=== PATIENT | female | born 1965 | race Caucasian/White ===

== ENCOUNTER 2016-03-16 09:15 | Observation (INO) | payer BC ==
[2016-03-21] MEDS ORDERED: ceFAZolin 2 GM/DEXTROSE 100 ML IV ONE (12:00)
[2016-03-21] MEDS ORDERED: LR 1,000 ML IV SCH (12:00)
[2016-04-20] MEDS ORDERED: LIDOCAINE 1% 30 ML SDV ONE (08:45)
[2016-04-20] MEDS ORDERED: BUPIVACAINE 0.25% 30 ML SDV ONE (08:45)
[2016-04-20] MEDS ORDERED: METHYLENE BLUE 1% 10 MG/ML VIAL ONE (08:46)
[2016-04-20] MEDS ORDERED: VASOPRESSIN 20 UNIT/ML VIAL ONE (08:46)
[2016-04-20] MEDS ORDERED: LR 1,000 ML IV SCH (11:00)
[2016-04-20] MEDS ORDERED: ONDANSETRON 4 MG/2 ML VIAL IVP PRN (11:00)
[2016-04-20] MEDS ORDERED: MIDAZOLAM 2 MG/2 ML VIAL ONE (11:42)
[2016-04-20] MEDS ORDERED: SCOPOLAMINE HYDROBROMIDE 1.5 MG PATCH TD ONE (11:42)
[2016-04-20] MEDS ORDERED: fentaNYL 250 MCG/5 ML INJ ONE (11:52)
[2016-04-20] MEDS ORDERED: ROCURONIUM 50 MG/5 ML VIAL ONE ×3 (11:52→15:08)
[2016-04-20] MEDS ORDERED: fentaNYL 100 MCG/2 ML INJ ONE ×2 (11:52→14:57)
[2016-04-20] MEDS ORDERED: PROPOFOL/EMULSION 500 MG/50 ML BOTTLE IV ONE ×3 (11:52→14:58)
[2016-04-20] MEDS ORDERED: PROPOFOL 200 MG/20 ML VIAL ONE (11:52)
[2016-04-20] MEDS ORDERED: ONDANSETRON 4 MG/2 ML VIAL ONE (11:53)
[2016-04-20] MEDS ORDERED: DEXAMETHASONE 4 MG/ML VIAL ONE ×2 (11:53→15:08)
[2016-04-20] MEDS ORDERED: LIDOCAINE 2% 5 ML SDV ONE (11:53)
[2016-04-20] MEDS ORDERED: KETOROLAC 30 MG/1 ML SDV ONE (11:53)
[2016-04-20] MEDS ORDERED: ceFAZolin 1 GM VIAL ONE ×2 (12:06)
[2016-04-20] MEDS ORDERED: HYDROmorphONE/DILAUDID 2 MG/ML SYR ONE (13:26)
[2016-04-20] MEDS ORDERED: SURGIFLO MATRIX KIT WITH THROMBIN TP ONE (15:09)
[2016-04-20] MEDS ORDERED: ROCURONIUM 100 MG/10 ML VIAL ONE (15:09)
[2016-04-20] MEDS ORDERED: SUGAMMADEX SODIUM 200 MG/2 ML VIAL IVP ONE (15:25)
[2016-04-20] MEDS ORDERED: HYDROmorphONE/DILAUDID 2 MG TAB PO PRN (17:04)
--- NOTE | 2016-04-20 17:07 | POSTOPPROG ---
Post Op Note Date of Operation: 04/20/16 Surgeon: Suki Bates [employer] Worker: Charlotte Anesthesia: GET(General Endotracheal) Pre-op Diagnosis: menorrhagia, fibroid uterus, endometriosis Post-op Diagnosis: same Indication: menorrhagia, fibroid uterus, endometriosis Procedure: LAVH/BSO Findings: 13 week uterus, right 4 cm endometrioma cyst Inf/Abcess present in the surg proc area at time of surgery?: No Depth: Organ Space EBL: 100-500 Complications: none Specimen(s): ovaries, fallopian tubes, uterus, cervix
[2016-04-20] MEDS: KETOROLAC 30 MG/1 ML SDV IVP SCH ×2 (17:38→23:32)
[2016-04-20 18:02] VITALS: RESP 16
--- NOTE | 2016-04-20 18:04 | GOP ---
[f rep st] OPERATIVE REPORT DATE OF OPERATION: 04/20/2016 SURGEON: Suki Moss MD ELECT[employer] MACHINE OPERATOR: Micaela Porter MD. ANESTHESIA: General. PREOPERATIVE DIAGNOSIS: Menorrhagia, fibroid uterus, and endometriosis. POSTOPERATIVE DIAGNOSIS: Menorrhagia, fibroid uterus, and endometriosis. PROCEDURE PERFORMED: Laparoscopic-assisted vaginal hysterectomy and bilateral salpingoophorectomy. FINDINGS: A 13-week size fibroid uterus, a right endometrioma cyst, about 4 cm in size, a 1 cm left endometrioma cyst. Normal bladder, bilateral ureteral jets seen on cystoscopy. SPECIMENS: Ovaries, fallopian tubes, uterus, and cervix. ESTIMATED BLOOD LOSS: 400 mL. INDICATIONS: The patient is a 50-year-old female who had long-standing history of menorrhagia and endometriosis and fibroid uterus who had previously undergone a myomectomy and ovarian cystectomy and had a pelvic ultrasound, which revealed fibroid uterus and a right endometrioma, and desires surgical management. She had a normal endometrial biopsy prior to the procedure and a normal Pap smear prior to the procedure. DESCRIPTION OF PROCEDURE: The patient was taken to the operating room, where she was prepped and draped in a normal sterile fashion in the low dorsal lithotomy position. The patient had a Duff catheter placed in her bladder. The patient received 2 g of Ancef preoperatively. A surgical time-out was performed, verifying the patient's name, date of , planned procedure, and site. A bivalved speculum was placed in the patient's vagina. The anterior aspect of the cervix was grasped with a single-tooth tenaculum. The uterine manipulator was placed into the cervical canal and the bivalved speculum was removed, The gloves were changed. The umbilical skin was injected with 0.25% Marcaine. A 10 mm incision was made with an 11 blade scalpel. Subcutaneous tissue was dissected down to the fascia. The fascia was tented up and incised with a 15 blade scalpel. The fascia was tagged with 0 Vicryl. The Julissa port was placed in the patient's abdominal cavity. The patient was placed in Trendelenburg. The abdomen was insufflated. Approximately 5 cm to the patient' s right of her umbilicus and 2 cm caudad, the skin was transilluminated, injected with 0.25% Marcaine, and a 5 mm incision was made. Trocar was placed into the patient's abdominal cavity. The same procedure was performed on the left of the umbilicus. Visualization of the pelvic cavity revealed a large fibroid uterus that filled in the entire lower pelvis. She also had a 4 cm right endometrioma cyst. Her left ovary had approximately two 1 cm small endometriomas. The left round ligament was grasped, cauterized, and cut. The anterior leaf of the broad ligament was grasped, cauterized, and cut on the left side. Then, the left ovary was able to be elevated. The left IP was doubly cauterized, clamped, and cut, and the posterior leaf of the broad ligament was cauterized and cut. The bladder flap was created anteriorly. The uterine arteries were cauterized and cut. On the patient's right side, her right round ligament was grasped, cauterized, and cut. The anterior leaf of the broad ligament was grasped, cauterized, and cut, and the bladder flap was created anteriorly. The right utero-ovarian ligament was then cauterized and cut. The right ovary was then able to be elevated, and the right IP ligament was cauterized and cut. The posterior leaf of the broad ligament was then cauterized and cut down to the uterine arteries. The uterine arteries were cauterized and cut. A bladder flap was then created anteriorly. The vaginal portion of the procedure then took place. The patient was placed in high lithotomy position. A short weighted speculum was placed in the patient's vagina. A [place] was placed in the anterior aspect of the vagina. The cervix was grasped with Childers tenaculum x2, and the cervicovaginal junction was injected with dilute vasopressin circumferentially. The vaginal epithelium was incised with the 10 blade scalpel. The vaginal epithelium was dissected off the cervix bluntly. The posterior peritoneum was identified and entered in sharply. The long weighted speculum was then placed in the patient's posterior cul-de-sac. The bladder was then further dissected off the cervix. The uterosacral ligaments were bilaterally clamped, cut, and suture ligated, and the remaining portion of the cardinal ligaments were bilaterally clamped, cut, and suture ligated. Then, the anterior peritoneum was identified and entered in. The josee retractor was placed into the anterior cul-de-sac to deflect the bladder well away from the uterus. Then, uterine morcellation took place to deliver the uterus. This procedure took approximately an hour or so, extending the case by about an hour and a half longer than expected. The uterus was removed in pieces via morcellation with a 10 blade scalpel. Once the uterus, cervix, bilateral ovaries, and fallopian tubes were removed, the pelvis was irrigated. The posterior cuff was reapproximated with 0 Vicryl. The vaginal cuff was reapproximated with 0 Vicryl. The laparoscopic portion was then performed. The patient's abdomen was irrigated, and there was hemostasis at the pedicles and the vaginal cuff. Surgiflo was placed over the vaginal cuff. The fascia was reapproximated with O Vicryl and the skin was reapproximated with 4.0 monocryl. Cystoscopy was then performed. After the patient received methylene blue, bilateral ureteral jets were seen. The patient tolerated the procedure very well, and was stable to recovery room. All counts were correct x2. COMPLICATIONS: None. OUTCOME: Stable to the recovery room. /[id number]/MODL MTDD
[2016-04-20] MEDS ORDERED: DOCUSATE SODIUM 100 MG CAP PO PRN (18:19)
[2016-04-20] MEDS ORDERED: ACETAMINOPHEN 500 MG TAB PO PRN (18:19)
[2016-04-20] MEDS ORDERED: ZOLPIDEM TARTRATE 5 MG TAB PO PRN (18:19)
[2016-04-20] MEDS ORDERED: CALCIUM CARBONATE 500 MG CHEWABLE TAB PO PRN (18:20)
[2016-04-20] MEDS ORDERED: BETAMETHASONE IM SYRINGE IM SCH (18:30)
[2016-04-20 22:16] VITALS: O2SAT 100
[2016-04-20] MEDS ORDERED: FLU VACC QS 2016-17(3-64YR)/PF 0.5 ML SYR (FLUARIX QUAD) IM ONE (23:48)
[2016-04-21] MEDS ORDERED: FLU VACC QS 2016-17(3-64YR)/PF 0.5 ML SYR (FLUARIX QUAD) IM ONE (00:10)
[2016-04-21] MEDS: KETOROLAC 30 MG/1 ML SDV IVP SCH ×2 (05:38→07:27)
[2016-04-21 06:22] VITALS: BP 115/58; PULSE 57; TEMP 97.7
[2016-04-21 06:22] LABS: % IMMATURE GRANULYOCYTES 0.4 % (0.0-1.1); ABSOLUTE IMMATURE GRANULOCYTES 0.04 10^3/uL (0.00-0.10); ADD DIFF? NO; ADD MORPH? NO; ADD SCAN? NO; ATYPICAL LYMPHOCYTE FLAG 0 (0-99); FRAGMENT RBC FLAG 0 (0-99); HEMATOCRIT 23.6 % (38.0-47.0); HEMOGLOBIN 7.5 g/dL (12.6-16.3); LEFT SHIFT FLG 0 (0-99); LIPEMIA HEMOLYSIS FLAG 80 (0-99); MEAN CELL HEMOGLOBIN 27.7 pg (27.9-34.1); MEAN CELL HEMOGLOBIN CONCENTR. 31.8 g/dL (32.4-36.7); MEAN CELL VOLUME 87.1 fL (81.5-99.8); MEAN PLATELET VOLUME 9.9 fL (8.7-11.7); PLATELET CLUMPS FLAG 10 (0-99); PLATELET COUNT 245 10^3/uL (150-400); RED BLOOD CELL COUNT 2.71 10^6/uL (4.18-5.33); RED CELL DISTRIBUTION WIDTH 14.6 % (11.5-15.2)
--- NOTE | 2016-04-21 07:51 | SOAPPROG ---
SOAP Progress Note Assessment/Plan: Assessment: 50 yo s/p lavh/bso for fibroid uterus, menorrhagia, and endometriosis, pod 1, doing well. Plan: 04/21/16 07:50 Routine postop care, may discharge home after voiding. HCT dropped appropriately according to blood loss, will start iron at home. Subjective: 50 yo s/p lavh/bso for fibroid uterus, menorrhagia, and endometriosis, pod 1, doing well. Pain well controlled, no nausea, no vomiting, ambulating. Objective: Vital Signs Temp Pulse Resp BP Pulse Ox 36.5 C 57 L 16 115/58 L 100 04/21/16 05:45 04/21/16 05:45 04/21/16 05:45 04/21/16 05:45 04/21/16 05:45 Laboratory Results 04/21/16 05:45 04/20/16 04/21/16 04/22/16 05:59 05:59 05:59 Intake Total 6850 Output Total 2850 Balance 4000 Physical Exam - Physical Exam General Appearance: no apparent distress Respiratory: lungs clear Cardiac/Chest: regular rate, rhythm Abdomen: non-tender Skin: warm/dry Extremities: non-tender Neuro/Psych: oriented x 3 ICD10 Worksheet Patient Problems: Problems Problem Status Diagnosed S/P hysterectomy Acute
[2016-04-21] MEDS ORDERED: PRENATAL VIT 1 EACH TAB PO SCH (08:00)
--- NOTE | 2016-04-21 09:01 | GDS ---
[f rep st] DISCHARGE SUMMARY DISCHARGE DIAGNOSES: Menorrhagia, endometrioma, and fibroid uterus, status post laparoscopic-assisted vaginal hysterectomy and bilateral salpingo- oophorectomy. HISTORY OF PRESENT ILLNESS: Janelle is a 50-year-old female who had longstanding history of menorrhagia and endometriosis, had previous myomectomy and cystectomy, had recurrence of fibroids and menorrhagia and endometrioma and desired surgical management. The patient underwent a laparoscopic-assisted vaginal hysterectomy without complications. She had a large fibroid uterus, 13 week size uterus, and EBL was 400 mL. Postoperatively, she is doing very well. She was ambulating. She was voiding. She was tolerating p.o. intake. Her pain was well controlled. PHYSICAL EXAM: VITAL SIGNS: Her blood pressure is 115/58. Pulse is 57. Respiratory rate is 16. O2 sat is 100% and temperature is 36.5. GENERAL: She is in no apparent distress. ABDOMEN: Soft, nontender. Her incision is clean, dry, and intact. LUNGS: Clear to auscultation. HEART: Regular rate and rhythm. EXTREMITIES: She has no calf tenderness. Her urine output was 2450 mL over 15 hours. Her H and H were 8 and 23. DISCHARGE INSTRUCTIONS: Include nothing in the vagina for 6 weeks. Call for fevers, chills, heavy vaginal bleeding, severe abdominal pain, nausea, or vomiting. No heavy lifting greater than 10 pounds for 6 weeks. DISCHARGE MEDICATIONS: Include ibuprofen 600 mg 1 p.o. q.6 hours p.r.n. pain and Dilaudid 4 mg 1 p.o. q.4 hours p.r.n. pain. She is to follow up in 2 weeks with me for her postop visit. /[id number]/MODL MTDD
[2016-04-21] MEDS ORDERED: IBUPROFEN 600 MG TAB PO SCH (12:00)
== END 2016-04-21 11:14 | disposition home or self-care (01) ==
LOC: F3E 04-20 09:00 → FLD 04-20 17:21
PROVIDERS: ADMIT Obstetrics & Gynecology; ATTEND Obstetrics & Gynecology
PROC: 0UTC7ZZ Resection of Cervix, Via Natural or Artificial Opening (ICD-10-PCS; principal; 2016-04-20 10:30)
PROC: 0UT2FZZ Resection of Bilateral Ovaries, Via Natural or Artificial Opening With Percutaneous Endoscopic Assistance (ICD-10-PCS; principal; 2016-04-20 10:30)
PROC: 0UT7FZZ Resection of Bilateral Fallopian Tubes, Via Natural or Artificial Opening With Percutaneous Endoscopic Assistance (ICD-10-PCS; principal; 2016-04-20 10:30)
PROC: 0UT9FZZ Resection of Uterus, Via Natural or Artificial Opening With Percutaneous Endoscopic Assistance (ICD-10-PCS; principal; 2016-04-20 10:30)
DX: N92.0 Excessive and frequent menstruation with regular cycle (principal); D25.9 Leiomyoma of uterus, unspecified; N80.1 Endometriosis of ovary; Z23 Encounter for immunization
CPT/HCPCS: 58554; 90471; G0378; G0008; J0690; J0702; J1100; J1170; J1885; J2250; J2405; J2704; J3010

== ENCOUNTER → 2016-09-13 | Outpatient (CLI) | payer BC | LOC: BMCIMAGING 09:24 | DX: R07.1 Chest pain on breathing (principal); J45.909 Unspecified asthma, uncomplicated ==

== ENCOUNTER → 2016-12-21 | Outpatient (CLI) | payer BC ==
[~2016-12-21] MED LIST: IOPAMIDOL (ISOVUE-300) 100 ML BTL ONE
== END ==
LOC: FIMAGING 11:34
PROVIDERS: ATTEND Physician Assistant
DX: R19.5 Other fecal abnormalities (principal)
CPT/HCPCS: Q9967

== ENCOUNTER → 2017-01-18 | Outpatient (CLI) | payer BC | LOC: BMCIMAGING 13:06 | PROVIDERS: ATTEND Physician Assistant Medical | DX: Z12.31 Encounter for screening mammogram for malignant neoplasm of breast (principal) | CPT/HCPCS: G0202 ==